=== PATIENT | female | born 2000 | race Asian ===

== ENCOUNTER → 2022-05-29 13:04 | Outpatient (BNVA) | payer BC, SELFPAY | PROVIDERS: PCP General Practice; Visit Provider Psychiatry & Neurology Neurology | DX: Z13.89 Encounter for screening for other disorder (principal) ==

== ENCOUNTER 2022-06-13 09:12 | Outpatient (REF) | payer BC, SELFPAY ==
--- NOTE | ~2022-06-13 | MR_ITS ---
EXAMINATION: MR BRAIN WITHOUT CONTRAST CLINICAL INFORMATION: Speech disturbance and memory loss. COMPARISON: None. TECHNIQUE: Multiplanar, multisequence imaging of the brain was performed without contrast. FINDINGS: No diffusion abnormalities are identified to suggest an acute or subacute infarct. The ventricles are normal in size. No mass effect or midline shift is seen. No brain parenchymal signal abnormality is noted. No extra-axial fluid collections are seen. The brainstem and cerebellum are normal. The gradient refocused acquisition is normal. The craniovertebral junction, marrow signal, and midline structures are normal. The major intracranial flow voids at the level of the [place] of [place] are preserved. The dural venous sinus flow voids are maintained. The mastoid air cells are well aerated. Mild ethmoid sinus mucosal thickening noted. MR/MR head/brain wo con IMPRESSION: Normal MRI of the brain. No acute process.
== END 2022-06-13 09:13 | disposition home or self-care (01) ==
LOC: HO.MRI 09:12
PROVIDERS: PCP General Practice; Visit Provider Psychiatry & Neurology Neurology
DX: R53.1 Weakness (principal); R47.9 Unspecified speech disturbances; R41.3 Other amnesia
CPT/HCPCS: 70551

== ENCOUNTER 2022-06-21 07:50 | Outpatient (REF) | payer BC, SELFPAY ==
--- NOTE | 2022-06-21 07:54 | EEG_ITS ---
This is a 16 channel EEG with an EKG lead. The patient is reported awake during the tracing. Background EEG rhythm during the early part of the tracing is about 10 hertz, 5 to 20 microvolt posteriorly and lower amplitude fast anteriorly. Photic stimulation does not produce any significant abnormality. Hyperventilation is not performed. The patient transitioned into drowsiness with no significant abnormality. Cardiac lead does not reveal any significant abnormality. No sharp wave spikes or paroxysmal tendency noted. IMPRESSION: Unremarkable EEG. MD HONG Gonzalez/GARETT / [id number]
== END 2022-06-21 07:51 | disposition home or self-care (01) ==
LOC: HO.NEURO 07:50
PROVIDERS: PCP General Practice; Visit Provider Psychiatry & Neurology Neurology
DX: R53.1 Weakness (principal); R47.9 Unspecified speech disturbances; R41.3 Other amnesia
CPT/HCPCS: 95816

== ENCOUNTER 2023-06-03 18:12 | Emergency (ER) | payer BC, SELFPAY ==
[2023-06-03] VITALS (8 sets, daily range): BP systolic 100–116; BP diastolic 63–92; PULSE 84–110; RESP 16–22; TEMP 36.8–37.3; O2SAT 98–100; BMI 21.2
--- NOTE | ~2023-06-03 | CT_ITS ---
EXAMINATION: CT HEAD WITHOUT CONTRAST CLINICAL INFORMATION: Right facial drop. COMPARISON: None. TECHNIQUE: Contiguous axial imaging was performed from the skull base to vertex without intravenous administration of contrast. This CT examination was performed using dose optimization techniques as appropriate, variously including the following: *Automated exposure control *Adjustment of mA and/or kV according to patient size (this includes techniques or standardized protocols for targeted exams where dose is matched to indication/reason for exam; i.e. extremities or head) *Use of iterative reconstruction technique DLP: 625 mGy-cm FINDINGS: Very subtle focal region of decreased density in the right temporal lobe (image 47 series 5) is favored to be related with artifact. There is no evidence of acute intracranial hemorrhage or edematous territorial infarction. Leija-white matter differentiation is preserved. The ventricles are normal in size and configuration. No evidence for obstructive hydrocephalus. No abnormal mass effect or midline shift. No extra-axial fluid collections. No acute soft tissue or osseous abnormalities. The mastoid air cells and paranasal sinuses are clear. CT/CT head for stroke IMPRESSION: No acute intracranial abnormalities. A [employer] basketball coach (Seamus Almeida) confirmed receipt of these findings Xochitl TROTTER at 7:40 PM on 06/03/2023.
--- NOTE | 2023-06-03 19:04 | ECG_ITS ---
Test Reason : STROKE Blood Pressure : / mmHG Vent. Rate : 087 BPM Atrial Rate : 087 BPM P-R Int : 124 ms QRS Dur : 090 ms QT Int : 354 ms P-R-T Axes : 067 048 027 degrees QTc Int : 425 ms Normal sinus rhythm Possible Left atrial enlargement RSR' or QR pattern in V1 suggests right ventricular conduction delay Borderline ECG No previous ECGs available Referred By: Xochitl Vazquez Electronically Signed By:KYE MERCEDES MD
--- NOTE | 2023-06-03 19:08 | ED.GENADULT ---
HPI - General Adult General Chief complaint: General Medical Stated complaint: Weakness Time Seen by Provider: 06/03/23 18:29 History of Present Illness HPI narrative: Patient is a 22-year-old who presents to the emergency department via EMS for evaluation of progressive generalized weakness and a right-sided facial droop. Patient reports longstanding chronic history of generalized weakness, having outpatient follow-up with multiple specialists primarily through [facility], reports at this time the cause of her weakness is unknown. She states over the past 2 years she has had progressive weakness from initially using a cane, followed by forearm crutches, is primarily wheelchair-bound at this time. She states that over the past 2 weeks this weakness has progressed, she finds that time that she has difficulty lifting her arms to eat with utensils and that her arms and legs feel particularly more weak than usual. Denies any bowel incontinence. Reports chronic urinary frequency/urgency/near incontinence but denies any acute change to this. She denies any recent injury. Denies any recent vaccinations or potential tick-borne illness exposure. She has been having intermittent migraines and dizziness. She expresses concern that she may have myasthenia gravis but has not been tested for this by her account. She reports that 2 hours ago her friend had reported to her that the right side of her face primarily to her mouth appeared to be drooping which is not normal for her. Related Data Allergies Allergy/AdvReac Type Severity Reaction Status Date / Time No Known Allergies Allergy Verified 05/29/22 13:22 [facility] Past Medical History Medical History (Updated 06/03/23 @ 22:03 by Xochitl Vazquez CNP) Memory loss Speech disturbance Weakness Bipolar disorder Autism PTSD (post-traumatic stress disorder) Anxiety Kiara-Danlos disease POTS (postural orthostatic tachycardia syndrome) Family History Family History Mother Hyperthyroidism Father Heart disease HTN (hypertension) Social History Social History Alcohol intake: never Patient Tobacco Use Status: Never used Tobacco Smoked in Last 30 Days: No Use of substances other than those prescribed or required for medical reasons: No Any prior treatment program specific to substance use: No Advance Directives: No Advance Directives Information Provided: No Patient : No Physical Exam ED Vital Signs: Vital Signs - 24 hr 06/03/23 18:35 06/03/23 19:30 06/03/23 19:43 Temperature 99.2 F 98.9 F Pulse Rate 98 89 100 Respiratory Rate 16 22 H 18 Blood Pressure 114/70 112/64 116/71 Pulse Oximetry 99 99 98 Oxygen Delivery Method Room Air Room Air Room Air 06/03/23 20:12 06/03/23 20:42 06/03/23 21:24 Temperature 98.3 F 98.5 F Pulse Rate 91 84 97 Respiratory Rate 16 16 18 Blood Pressure 106/69 100/63 114/70 Pulse Oximetry 99 99 99 Oxygen Delivery Method Room Air Room Air Room Air 06/03/23 22:13 Temperature 98.5 F Pulse Rate 97 Respiratory Rate 18 Blood Pressure 114/70 Pulse Oximetry 99 Oxygen Delivery Method Room Air BMI result Body Mass Index 21.2 Appearance: Alert.?Oriented to person, place and time. No acute distress.?Normal affect. Eyes: Pupils equal, round and reactive to light.? ENT: Pharynx normal.?? Neck: Normal inspection.? Neck supple.?? CVS: Heart sounds normal. Normal heart rate and rhythm.? Pulses normal.?? Respiratory: No respiratory distress.? Lung sounds clear to auscultation bilaterally?? Abdomen: Soft and non-tender. Normoactive bowel sounds. No pulsatile mass.?? Skin: Skin warm and dry.? Normal skin color.? Normal skin turgor.?? Extremities: No lower extremity edema.? No calf ttp? Neuro: Able to self transfer stand pivot from wheelchair. 4/5 motor strength throughout to bilateral upper and lower extremities, normal muscle tone. Moves extremities spontaneously. DTRs 1+ bilaterally throughout. Normal finger to nose test. Sensation intact bilaterally. CN II-XII intact. Has very mild right-sided facial droop predominantly to the mouth upon examination otherwise no focal deficits. NIH Stroke Scale Time: 18:50 Level of Consciousness: Alert Level of Consciousness Questions: Answers both questions correctly Level of Consciousness Commands: Performs both tasks correctly Best Gaze: Normal Visual: No visual loss Facial Palsy: Minor paralyis (Right side of mouth) Motor Arm (Right): No drift Motor Arm (Left): No drift Motor Leg (Right): No drift Motor Leg (Left): No drift Limb Ataxia: Absent Sensory: Normal Best Language: Mute, global aphasia (Chronic aphasia, uses voice AAC system for communication) Dysarthia: Normal Extinction and Inattention: No abnormality Score: 4 Course Reevaluation(s) Reevaluation #1: Received call from [facility], no acute intracranial pathology Time: 19:42 Reevaluation #2: CBC is without leukocytosis or anemia. CMP is unremarkable. TSH within normal range. EKG reveals a normal sinus rhythm, normal SD interval, QTC 425, no ST elevation, no ST depression, no T-wave inversion, no acute ischemic findings. Urinalysis is without evidence of infection. Advised outpatient follow-up with primary care provider/neurologist for further evaluation/management of chronic weakness/dystonia. Medical Decision Making Medical Decision Making [facility] Narrative: Patient is a 22-year-old female with history of autism, depression, anxiety, 0CD, PTSD, traumatic dissociated disorder, food avoidance, PO TTS, ADHD, apraxia, speech disorder, dystonia, Kiara-Danlos syndrome presenting to emergency department coming from [facility] for evaluation of progressive weakness in a right-sided facial droop with last known well time approximately 2 hours prior to arrival. NIH stroke score of 4; however has chronic aphasia as noted, otherwise would have score of 1 for minor facial paralysis. Does not appear consistent with Feliz's palsy Has been seen by Neurology at [facility] in 2022, had MRI of the brain which was normal, and unremarkable EEG. Differential Diagnosis Differential Diagnoses: The differential diagnosis associated with the presentation includes (CVA, progressive chronic dystonia, viral syndrome) Admission/Observation Consideration of admission/observation: Escalation of care including admission/observation considered (See narrative above in course narrative for further detail) Lab Data [facility] Lab Attestation statement: I reviewed the patient's lab results. (See course narrative for further detail) 06/03/23 19:23 06/03/23 19:24 Labs: Lab Results 06/03/23 06/03/23 06/03/23 Range/Units 19:23 19:24 19:25 WBC 8.7 (4.8-10.8) X10*3/uL RBC 5.04 (4.20-5.50) X10*6/uL Hgb 14.3 (12.0-16.0) g/dl Hct 43.9 (37.0-47.0) % MCV 87.1 (80.0-98.0) fL MCH 28.4 (27.0-33.0) pg MCHC 32.6 (31.0-35.0) g/dl RDW 12.9 (11.0-16.0) % Plt Count 228 (160-400) X10*3/uL MPV 8.7 L (9.4-12.3) fL Immature Gran % (Auto) 0.3 (0.0-0.4) % Neut % (Auto) 70.4 (45-73) % Lymph % (Auto) 22.1 (20-40) % [place] % (Auto) 6.2 (2-11) % Eos % (Auto) 0.7 (0-4) % Baso % (Auto) 0.3 (0-2) % Lymph # (Auto) 1.9 (1.2-4.9) X10*3/uL [place] # (Auto) 0.5 (0.1-1.2) X10*3/uL Eos # (Auto) 0.1 (0.0-0.4) X10*3/uL Baso # (Auto) 0.0 (0.0-0.2) X10*3/uL Abs Immat Gran (auto) 0.03 (0.00-0.03) X10*3/uL Absolute Neuts (auto) 6.1 (2.0-8.3) x10*3/uL Absolute Nucleated RBC 0.000 (0.0-0.012) X10*3/uL Nucleated RBC % (auto) 0.0 (0.0-0.2) /100WBC PT (11.1-13.3) SEC Whole Blood PT 12.2 (11.1-13.5) sec INR (0.9-1.1) Whole Blood INR 1.0 (0.9-1.1) Sodium 140 (135-145) mmol/L Potassium 3.9 (3.3-5.1) mmol/L Chloride 106 (96-108) mmol/L Carbon Dioxide 25 (22-29) mmol/L Anion Gap 13 (12-20) BUN 13 (9-16) mg/dL Creatinine 0.74 (0.5-1.4) mg/dL Estim Creat Clear Calc 108.2 Estimated GFR > 60 POC Glucose 84 (60-115) mg/dL Random Glucose 87 85 (60-115) mg/dL Calcium 9.7 (8.4-10.2) mg/dL Total Bilirubin 0.4 (0.0-1.0) mg/dL Direct Bilirubin 0.2 (0.0-0.5) mg/dL AST 18 (5-31) U/L ALT 22 (0-31) U/L Alkaline Phosphatase 48 (39-117) U/L Total Creatine Kinase 90 (26-140) U/L Total Protein 8.0 (6.5-8.0) g/dL Albumin 4.4 (3.5-5.0) g/dL TSH 1.10 (0.32-4.0) uIU/mL Urine Color Urine Appearance Urine pH (5.0-9.0) Ur Specific [place] (1.005-1.025) Urine Protein (Neg-Trace) mg/dL Urine Glucose (UA) (Negative) mg/dL Urine Ketones (Negative) mg/dL Urine Blood (Negative) Urine Nitrite (Negative) Ur Leukocyte Esterase (Negative) 06/03/23 Range/Units 19:42 WBC (4.8-10.8) X10*3/uL RBC (4.20-5.50) X10*6/uL Hgb (12.0-16.0) g/dl Hct (37.0-47.0) % MCV (80.0-98.0) fL MCH (27.0-33.0) pg MCHC (31.0-35.0) g/dl RDW (11.0-16.0) % Plt Count (160-400) X10*3/uL MPV (9.4-12.3) fL Immature Gran % (Auto) (0.0-0.4) % Neut % (Auto) (45-73) % Lymph % (Auto) (20-40) % [place] % (Auto) (2-11) % Eos % (Auto) (0-4) % Baso % (Auto) (0-2) % Lymph # (Auto) (1.2-4.9) X10*3/uL [place] # (Auto) (0.1-1.2) X10*3/uL Eos # (Auto) (0.0-0.4) X10*3/uL Baso # (Auto) (0.0-0.2) X10*3/uL Abs Immat Gran (auto) (0.00-0.03) X10*3/uL Absolute Neuts (auto) (2.0-8.3) x10*3/uL Absolute Nucleated RBC (0.0-0.012) X10*3/uL Nucleated RBC % (auto) (0.0-0.2) /100WBC PT 11.5 (11.1-13.3) SEC Whole Blood PT (11.1-13.5) sec INR 0.9 (0.9-1.1) Whole Blood INR (0.9-1.1) Sodium (135-145) mmol/L Potassium (3.3-5.1) mmol/L Chloride (96-108) mmol/L Carbon Dioxide (22-29) mmol/L Anion Gap (12-20) BUN (9-16) mg/dL Creatinine (0.5-1.4) mg/dL Estim Creat Clear Calc Estimated GFR POC Glucose (60-115) mg/dL Random Glucose (60-115) mg/dL Calcium (8.4-10.2) mg/dL Total Bilirubin (0.0-1.0) mg/dL Direct Bilirubin (0.0-0.5) mg/dL AST (5-31) U/L ALT (0-31) U/L Alkaline Phosphatase (39-117) U/L Total Creatine Kinase (26-140) U/L Total Protein (6.5-8.0) g/dL Albumin (3.5-5.0) g/dL TSH (0.32-4.0) uIU/mL Urine Color Yellow Urine Appearance Clear Urine pH 7.0 (5.0-9.0) Ur Specific [place] 1.010 (1.005-1.025) Urine Protein Negative (Neg-Trace) mg/dL Urine Glucose (UA) Negative (Negative) mg/dL Urine Ketones Negative (Negative) mg/dL Urine Blood Negative (Negative) Urine Nitrite Negative (Negative) Ur Leukocyte Esterase Negative (Negative) Independent Interpretation I performed an independent interpretation of an: EKG (See course narrative for further detail) and CT Scan (No ICH, no infarct) Radiology Impression Discussion of test interpretation with radiology: I have reviewed the radiologist's reading. Radiologist Impression: CT/CT head for stroke IMPRESSION: No acute intracranial abnormalities. Independent Historian Clinical information obtained from an independent historian. History obtained from or confirmed by: Friend (Present who confirms history) External Record Review External record reviewed: Outpatient record (See narrative above) Critical Care Time Critical Care Time Critical Care Time: Yes Total Critical Care Time: 60 Attestation: I personally attest to this critical care time spent taking care of the patient exclusive of all other billable procedures was approximately 60 minutes including initial evaluation of patient, ordering tests, CTinterpretation, EKG interpretation, medical consultation, documentation, re-evaluation. Discharge Plan Discharge Clinical Impression: Weakness Patient Disposition: Home, Self-Care Instructions: Weakness (ED) Additional Instructions: As discussed, please follow-up closely with your primary care provider and/or a neurologist specialist for continued evaluation and management of your symptoms. You may return back to emergency department any new or worsening symptoms or concerns. Referrals: Cheri Ni MD [Primary Care Provider] - Interventions: ED Discharge Assessment Last Done: 06/03/23 22:13 Discharge Date/Time: 06/03/23 22:15
--- NOTE | 2023-06-03 19:14 | MHC.EDTECH ---
This tech took over care of patient at 1900, stroke alert called patient was brought to CT-Scan
--- NOTE | 2023-06-03 19:25 | PC.NURSE ---
Pt back from ct, kg complete, IV line obtained # 20 R-forearm. 1925 INR: 1.0, POC:84, labs drawn and sent to lab. pt reports chronic pain generalized all over.
--- NOTE | 2023-06-03 19:28 | MHC.EDTECH ---
Patient was changed into hospital attire,placed on the software validation engineer,EKG taken and signed by provider. POC is 84,Stroke INR 1.0 PT 12.2,RN and provider aware.
[2023-06-03 19:29] LABS: Basophils Percent Auto 0.3 % (0-2); Eosinophils Absolute Auto 0.1 X10*3/uL (0.0-0.4); Eosinophils Percent Auto 0.7 % (0-4); Hematocrit 43.9 % (37.0-47.0); Hemoglobin 14.3 g/dl (12.0-16.0); Imm Gran Abs Auto 0.03 X10*3/uL (0.00-0.03); Imm Gran Pct Auto 0.3 % (0.0-0.4); Lymphocytes Absolute Auto 1.9 X10*3/uL (1.2-4.9); Lymphocytes Percent Auto 22.1 % (20-40); MANUAL DIFF FLAG NO; Mean Corpuscular HGB Conc 32.6 g/dl (31.0-35.0); Mean Corpuscular Hemoglobin 28.4 pg (27.0-33.0); Mean Corpuscular Volume 87.1 fL (80.0-98.0); Mean Platelet Volume 8.7 fL (9.4-12.3); Monocytes Absolute Auto 0.5 X10*3/uL (0.1-1.2); Monocytes Percent Auto 6.2 % (2-11); Neutrophils Absolute Auto 6.1 x10*3/uL (2.0-8.3); Neutrophils Percent Auto 70.4 % (45-73); Platelet Count 228 X10*3/uL (160-400); Red Blood Count 5.04 X10*6/uL (4.20-5.50); Red Cell Distribution Width 12.9 % (11.0-16.0); White Blood Count 8.7 X10*3/uL (4.8-10.8)
[2023-06-03 19:36] LABS: Glucose, Whole Blood 84 mg/dL (60-115)
[2023-06-03 19:36] LABS: Prothrombin Time Whole Bld POC 12.2 sec (11.1-13.5)
[2023-06-03 19:38] LABS: Glucose Random 85 mg/dL (60-115)
--- NOTE | 2023-06-03 19:42 | MHC.EDTECH ---
Urine sample and lab obtained and sent to lab.
[2023-06-03 19:49] LABS: Alanine Aminotransferase 22 U/L (0-31); Albumin Level 4.4 g/dL (3.5-5.0); Alkaline Phosphatase 48 U/L (39-117); Anion Gap 13 (12-20); Aspartate Amino Transferase 18 U/L (5-31); Bilirubin Direct 0.2 mg/dL (0.0-0.5); Bilirubin Total 0.4 mg/dL (0.0-1.0); Blood Urea Nitrogen 13 mg/dL (9-16); Calcium 9.7 mg/dL (8.4-10.2); Carbon Dioxide 25 mmol/L (22-29); Chloride 106 mmol/L (96-108); Creatinine Clr Calc Pharmacy 108.2; Estimated Glomerular Filt Rate > 60; Glucose Random 87 mg/dL (60-115); Potassium 3.9 mmol/L (3.3-5.1); Sodium 140 mmol/L (135-145)
[2023-06-03 19:51] LABS: Appearance Urine Clear; Color Urine Yellow; Glucose Urine UA Negative (Negative); Leukocyte Esterase Urine Negative (Negative); Nitrite Urine Negative (Negative); Urine Blood Negative (Negative); Urine Ketones Negative (Negative); Urine Protein Negative (Neg-Trace)
[2023-06-03 20:01] LABS: INTERNATIONAL NORM RATIO 0.9 (0.9-1.1); Prothrombin Time 11.5 SEC (11.1-13.3)
[2023-06-03 20:05] LABS: Stroke Lab Use COMPLETE
== END 2023-06-03 22:15 | disposition home or self-care (01) ==
PROVIDERS: Nurse Practitioner Family; Emergency Provider Emergency Medicine; PCP General Practice
DX: R53.1 Weakness (principal); R29.810 Facial weakness; Q79.60 Ehlers-Danlos syndrome, unspecified; Z99.3 Dependence on wheelchair
CPT/HCPCS: 36415; 70450; 80048; 80076; 81003; 82550; 82947; 84443; 85025; 85610; 93005; 99284

== ENCOUNTER → 2023-06-03 19:04 | Outpatient (BNV) | payer BC, SELFPAY | PROVIDERS: Emergency Provider Emergency Medicine; PCP General Practice; Visit Provider Internal Medicine Cardiovascular Disease | DX: R94.31 Abnormal electrocardiogram [ECG] [EKG] (principal) | CPT/HCPCS: 93010 ==